=== PATIENT | male | born 1965 | race Caucasian/White ===

== ENCOUNTER 2023-04-07 15:18 | Emergency (ER) | payer MEDICARE, MEDICAID ==
[2023-04-07 15:31] LABS: APPEARANCE,URINE SLIGHTLY CLOUDY (CLEAR); COLOR,URINE YELLOW (YELLOW); PH,URINE 7.5 (5.0-9.0)
[2023-04-07 15:32] LABS: GLUCOSE,URINE NEGATIVE (NEGATIVE); KETONES,URINE NEGATIVE (NEGATIVE); PROTEIN,URINE TRACE (NEGATIVE)
[2023-04-07 15:33] LABS: BILIRUBIN,URINE NEGATIVE (NEGATIVE); LEUKOCYTE ESTERASE,URINE MODERATE (NEGATIVE); NITRITE,URINE NEGATIVE (NEGATIVE); OCCULT BLOOD,URINE MODERATE (NEGATIVE); UROBILINOGEN,URINE 0.2 mg/dL (0.2-1.0)
[2023-04-07 15:47] LABS: BACTERIA,URINE MANY /HPF (0-FEW/HPF); EPITHELIAL CELLS,URINE FEW /HPF (NOT SEEN); MUCUS,URINE FEW /LPF (NOT SEEN); WBC,URINE >100 /HPF (0-5/HPF)
[2023-04-07 15:53] LABS: BASOPHILS PERCENT AUTO 0.4 % (0.0-1.0); EOSINOPHILS PERCENT AUTO 2.9 % (1.0-3.0); HEMATOCRIT 34.6 % (40.0-54.0); HEMOGLOBIN 11.1 g/dL (14.0-18.0); LYMPHOCYTES PERCENT AUTO 15.8 % (20.5-50.1); MEAN CORPUSCULAR HEMOGLOBIN 21.5 pg (27.0-34.0); MEAN CORPUSCULAR HGB CONC 32.1 g/dL (33.0-35.0); MEAN CORPUSCULAR VOLUME 66.9 fL (80-100); MONOCYTES PERCENT AUTO 7.9 % (2-8); PLATELET COUNT,PLT 436 10^3/uL (150-450); RED BLOOD CELL COUNT 5.17 10^6/uL (4.6-6.2)
[2023-04-07] MEDS ORDERED: cefTRIAXone 1 GM Vial IVPUSH ONE (15:56)
[2023-04-07 16:15] LABS: ALANINE AMINOTRANSFERASE,ALT 12 U/L (16-63); ALBUMIN 2.7 g/dL (3.4-5.0); ALKALINE PHOSPHATASE 83 U/L (46-116); ANION GAP 12.5 mEq/L (7-13); ASPARTATE AMNIOTRANSFERASE,AST 14 U/L (15-37); BILIRUBIN TOTAL 0.5 mg/dL (0.2-1.0); BLOOD UREA NITROGEN,BUN 26 mg/dL (7-18); BUN/CREATININE RATIO 32.9 (No establ ref range); CALCIUM 9.1 mg/dL (8.5-10.1); CARBON DIOXIDE,CO2 29 mmol/L (21-32); CHLORIDE,CL 92 mmol/L (98-107); CREATININE 0.79 mg/dL (0.70-1.30); GLUCOSE RANDOM 131 mg/dL (70-99); POTASSIUM,K 2.5 mmol/L (3.5-5.1); PROTEIN TOTAL,TP 7.3 g/dL (6.4-8.2); SODIUM,NA 131 mmol/L (136-145)
[2023-04-07 16:23] LABS: A/G RATIO 0.59; ESTIMATED GFR 102 mL/min (>=60)
[2023-04-07] MEDS ORDERED: Potassium Chloride 10 MEQ Tab.ER PO ONE (16:39)
[2023-04-07] MEDS ORDERED: NS with KCl 40mEq 1,000 ML IV SCH (16:45)
[2023-04-07] MEDS ORDERED: Water For Injection, Sterile 10 ML SDV INJECT ONE (16:53)
[2023-04-07] MEDS ORDERED: Potassium Chloride 10% 20 MEQ/15 ML Soln 15 ML UD Cup PO SCH (18:00)
[2023-04-07 18:07] VITALS: PULSE 78
[2023-04-07 20:11] VITALS: BP 102/67
[2023-04-07] MEDS ORDERED: Take Home: Ciprofloxacin HCl 500 MG, 6 Tab Pack PO ONE (21:50)
[2023-04-07 22:26] LABS: ANION GAP 12.6 mEq/L (7-13); BLOOD UREA NITROGEN,BUN 23 mg/dL (7-18); CALCIUM 8.6 mg/dL (8.5-10.1); CARBON DIOXIDE,CO2 29 mmol/L (21-32); CHLORIDE,CL 101 mmol/L (98-107); CREATININE 0.71 mg/dL (0.70-1.30); GLUCOSE RANDOM 87 mg/dL (70-99); POTASSIUM,K 4.6 mmol/L (3.5-5.1); SODIUM,NA 138 mmol/L (136-145)
[2023-04-07 22:43] LABS: ESTIMATED GFR 105 mL/min (>=60)
== END 2023-04-07 23:19 | disposition home or self-care (01) ==
LOC: DL.ED 15:18
DX: E87.1 Hypo-osmolality and hyponatremia (principal); E87.6 Hypokalemia; N30.01 Acute cystitis with hematuria; Z91.040 Latex allergy status; Z88.8 Allergy status to other drugs, medicaments and biological substances; Z88.1 Allergy status to other antibiotic agents
CPT/HCPCS: 36415; 80048; 80053; 81001; 83605; 85025; 86140; 87040; 96365; 96366; 96375; 99285-25; A9270-GY; J0696; J3480; J3490

== ENCOUNTER 2024-12-02 17:15 | Emergency (ER) | payer MEDICARE, MEDICAID ==
[2024-12-02 17:24] VITALS: BP 151/91; PULSE 101
[2024-12-02 18:59] LABS: BASOPHILS PERCENT AUTO 0.3 % (0.0-1.0); EOSINOPHILS PERCENT AUTO 3.5 % (1.0-3.0); HEMATOCRIT 35.3 % (40.0-54.0); HEMOGLOBIN 10.5 g/dL (14.0-18.0); LYMPHOCYTES PERCENT AUTO 17.5 % (20.5-50.1); MEAN CORPUSCULAR HEMOGLOBIN 22.5 pg (27.0-34.0); MEAN CORPUSCULAR HGB CONC 29.7 g/dL (33.0-35.0); MEAN CORPUSCULAR VOLUME 75.6 fL (80-100); MONOCYTES PERCENT AUTO 10.4 % (2-8); NEUTROPHILS PERCENT AUTO 68.3 % (42.2-75.2); PLATELET COUNT,PLT 273 10^3/uL (150-450); RED BLOOD CELL COUNT 4.67 10^6/uL (4.6-6.2)
[2024-12-02 19:20] LABS: ALANINE AMINOTRANSFERASE,ALT 14 U/L (16-63); ALBUMIN 2.7 g/dL (3.4-5.0); ALKALINE PHOSPHATASE 115 U/L (46-116); ANION GAP 14.5 mEq/L (7-13); ASPARTATE AMNIOTRANSFERASE,AST 17 U/L (15-37); BILIRUBIN TOTAL 0.5 mg/dL (0.2-1.0); BLOOD UREA NITROGEN,BUN 23 mg/dL (7-18); BUN/CREATININE RATIO 28.8 (No establ ref range); CALCIUM 8.8 mg/dL (8.5-10.1); CARBON DIOXIDE,CO2 29 mmol/L (21-32); CHLORIDE,CL 97 mmol/L (98-107); GLUCOSE RANDOM 89 mg/dL (70-99); POTASSIUM,K 3.5 mmol/L (3.5-5.1); SODIUM,NA 137 mmol/L (136-145)
[2024-12-02 19:30] LABS: A/G RATIO 0.63; ESTIMATED GFR 101 mL/min (>=60)
[2024-12-02] MEDS: Iopamidol 612 MG/ML 100 ML Bottle IVPUSH ONE (19:57)
== END 2024-12-02 22:48 | disposition hospice, inpatient (51) ==
LOC: DL.ED 17:15
DX: S37.30XA Unspecified injury of urethra, initial encounter (principal); Z46.6 Encounter for fitting and adjustment of urinary device; I10 Essential (primary) hypertension; Z88.8 Allergy status to other drugs, medicaments and biological substances; Z91.040 Latex allergy status; Z88.2 Allergy status to sulfonamides
CPT/HCPCS: 36415; 51702; 74177; 80053; 85025; 99285; Q9967